=== PATIENT | female | born 1990 | race Caucasian/White ===

== ENCOUNTER 2016-12-11 12:18 | Emergency (ER) | payer OTHER | END 2016-12-11 16:10 | disposition home or self-care (01) | LOC: ER 12:18 | DX: N93.8 Other specified abnormal uterine and vaginal bleeding (principal); F41.9 Anxiety disorder, unspecified; F32.9 Major depressive disorder, single episode, unspecified; Z79.899 Other long term (current) drug therapy | CPT/HCPCS: 36415; 96360 ==

== ENCOUNTER 2017-01-24 12:12 | Emergency (ER) | payer OTHER | END 2017-01-24 13:15 | disposition left against medical advice (07) | LOC: ER 12:12 | DX: Z53.21 Procedure and treatment not carried out due to patient leaving prior to being seen by health care provider (principal) ==